=== PATIENT | male | born 1945 | race Caucasian/White ===

== ENCOUNTER 2018-04-05 12:05 | Inpatient (IN) ==
[2018-04-05] MEDS ORDERED: Metoprolol Tartrate 25 MG Tablet PO ONE (13:00)
[2018-04-05] MEDS ORDERED: Chlorhexidine Gluconate 2% 1 Pack (2 Cloths) TOPICAL ONE (13:00)
[2018-04-05] MEDS ORDERED: Vancomycin Inj 1,000 MG in Sodium Chlor 0.9% Inj 250 ML IV.SIG SCH (13:00)
[2018-04-05] MEDS ORDERED: Chlorhexidine 4% Topical 120 APPLIC/120 ML Bottle TOPICAL SCH (13:00)
[2018-04-05] MEDS ORDERED: Sodium Chlor 0.9% Inj 500 ML IV.CONT ONE (13:00)
[2018-04-05] MEDS ORDERED: Ropivacaine 0.5% PF Inj 20 ML Vial ONE (13:53)
[2018-04-05] MEDS ORDERED: Sodium Chlor 0.9% Inj 73.07 ML, Ropivacaine 0.5% PF Inj 24.63 ML, Ketorolac Inj 30 MG, ... P-ARTICULR SCH ×5 (14:00)
[2018-04-05] MEDS ORDERED: ceFAZolin 2 GM Premix Inj 2 GM/50 ML PIGGYBACK IV.SIG SCH (14:00)
[2018-04-05] MEDS ORDERED: Sugammadex Inj 200 MG/2 ML Vial IV.PUSH ONE (14:31)
[2018-04-05] MEDS ORDERED: Lidocaine PF 1% Inj 5 ML Syringe OTHER ONE (14:53)
[2018-04-05] MEDS ORDERED: Ketorolac Inj 30 MG/ML (IVP) Vial IV.PUSH ONE (14:53)
[2018-04-05] MEDS ORDERED: Bisacodyl 10 MG Supp RECTAL PRN (18:02)
[2018-04-05] MEDS ORDERED: Post-op Orders (for Pharmacy) OTHER STA (18:02)
[2018-04-05] MEDS ORDERED: Zolpidem Tartrate 5 MG Tablet PO PRN (18:02)
[2018-04-05] MEDS ORDERED: Morphine Inj 4 MG/ML Vial IV.PUSH PRN (18:02)
[2018-04-05] MEDS ORDERED: fentaNYL Citrate Inj 100 MCG/2 ML Ampul ONE (18:05)
--- NOTE | 2018-04-05 18:25 | XR ---
EXAM DATE: 04/05/2018 6:22 PM EST AGE/SEX: 72 years / Male INDICATIONS: Post op right total knee. CLINICAL DATA: This is the patient's initial encounter. Patient reports that signs and symptoms have been present for 1 day and indicates a pain score of 0/10. MEDICAL/SURGICAL HISTORY: None. None. COMPARISON: No prior exams available for comparison. FINDINGS: Knee arthroplasty in place. Arthroplasty components are in anatomic alignment. No significant acute b anthony fracture. Immediate postsurgical soft tissue changes with surgical drains in place. CONCLUSION: 1. Status post right knee arthroplasty in anatomic alignment without acute fracture. Electronically signed by: Guillermo Najera MD Board Certified Radiologist 04/05/2018 6:23 PM EST
--- NOTE | 2018-04-05 18:50 | MP ---
cc: Randy Dumont MD DATE OF OPERATION: 04/05/2018 PREOPERATIVE DIAGNOSES: Right knee severe tricompartment osteoarthritis, genu varus deformity. POSTOPERATIVE DIAGNOSIS: Right knee severe tricompartment osteoarthritis, genu varus deformity. PROCEDURE PERFORMED: Right total knee arthroplasty - cemented [employer]. SURGEON: Randy Dumont MD HOT STAMP OPERATOR: Edith Spear PA-C. ANESTHESIA: General, adductor canal block, intraarticular block. TOURNIQUET TIME: Tourniquet time was 76 minutes at 250 mmHg. COMPLICATIONS: None. DRAIN Two. SPECIMEN: None. My sales office assistant, Edith Spear PA-C, was present for the entire surgical case. She was medically necessary for the entire case because of the complexity of case and to facilitate the performance of the procedure. The PHARMACY SCHEDULER at the back table was not of skill set for this case to manipulate instruments due to the multiple different soft tissue retractors, trial implants, permanent implants, including bone cement. The patient was brought in the operating room and had a satisfactory general endotracheal anesthesia by the department of anesthesia. The right lower extremity was prepped and draped in the usual sterile manner. The extremity was exsanguinated with elevation and tourniquet inflated at 250 mmHg. Anterior exposure of the knee was made. Paramedian capsulotomy was performed. The patient was found to have severe osteoarthritis with synovitis involving all three compartments of the knee. The remaining portion of the anterior cruciate ligament was removed. The posterior cruciate ligament was preserved. The remaining partial medial and lateral meniscus were removed. Posterior osteophyte formations of distal femur were also removed. The undersurface of the patella and prepatellar fat pad were surgically excised. Using the [employer]Vangu[employer] total knee arthroplasty system, IM guide was used in distal femur. This was 5-degree valgus cut to accept a 67.5 mm femoral component. Extramedullary guide was used for the proximal tibia, and this was to accept a 79 mm tibial component. Trial reduction was made. After appropriate balancing, flexion and extension with 12 mm insert. The patient was found to have excellent stability with both flexion and extension. Undersurface of the patella was removed to accept a 31 mm 3-pronged patellar prosthesis. All trial components were removed. The knee was prepared for cementing. First, the knee was anesthetized using 100 mL of local anesthesia by the provided by the pharmacy department. The knee was then irrigated with copious amounts of sterile saline antibiotic solution. Two packages of methyl methacrylate were used. This was high viscosity bone cement by [employer]. The tibial component was first cemented, this is 79 mm tibial component, followed by the femoral component, which was a 67.5 mm femoral component. Undersurface of the patella was resurfaced using a 31 mm 3-pronged patellar prosthesis. All excess bone cement removed. The bone cement was allowed to harden for 13-1/2 minutes. The trial polyethylene plastic was removed and a 12 x 79 "lipped" polyethylene plastic was assembled onto the tibial tray, and appropriate clipping mechanism was used to attach the polyethylene plastic to the tibial tray. Tourniquet was deflated. All bleeders were coagulated. Wound closed over two 1/8 inch Hemovac drains. The knee was irrigated with 4000 mL of sterile saline and antibiotic solution. The wound itself was allowed to dry. The patella was found to groove well with the patellofemoral compartment with the "no thumbs technique." The wound was closed in multiple layers. The capsule and extensor mechanism was closed with multiple interrupted #2 Ti-Cron suture, subcuticular layers with 0 Vicryl and 2-0 Vicryl, skin approximated with skin izabela. Sterile dressings were applied. The patient tolerated the procedure well and arrived in the recovery room in stable and satisfactory condition. MD MK White/jefferson , 05:57 PM , 06:09 PM
[2018-04-05] MEDS: Gabapentin 300 MG Capsule PO SCH (21:02)
[2018-04-05] MEDS: hydrALAZINE 25 MG Tablet PO SCH ×2 (21:02→23:16)
[2018-04-05] MEDS: Spironolactone 25 MG Tablet PO SCH (21:19)
[2018-04-05] MEDS: oxyCODONE/Acetaminophen 10/325 Tablet PO PRN (21:19)
[2018-04-05] MEDS: Metoprolol Tartrate 25 MG Tablet PO SCH (21:19)
[2018-04-05] MEDS: Senna/Docusate Sodium 8.6/50 MG Tablet PO SCH (21:19)
[2018-04-06] MEDS: oxyCODONE/Acetaminophen 10/325 Tablet PO PRN ×5 (05:57→22:43)
[2018-04-06] MEDS: Levothyroxine 50 MCG Tablet PO SCH (05:57)
[2018-04-06] MEDS: hydrALAZINE 25 MG Tablet PO SCH ×3 (05:57→18:12)
--- NOTE | 2018-04-06 07:19 | P.PNOP ---
Subjective Interval history: POD# 1 R TKR No chest pain;no SOB Explained operative findings;answered multiple questions Physical Exam Vital signs: Vital Signs 04/05/18 13:13 04/05/18 13:41 04/05/18 13:42 Temperature 98.3 F Pulse Rate 79 80 Respiratory Rate 18 Blood Pressure 123/70 Pulse Oximetry 96 92 L 96 04/05/18 17:57 04/05/18 18:00 04/05/18 18:15 Temperature 97.4 F L Pulse Rate 79 79 76 Respiratory Rate 14 14 14 Blood Pressure 147/76 H 138/75 124/69 Pulse Oximetry 98 97 97 04/05/18 18:30 04/05/18 18:56 04/05/18 20:00 Temperature 97.2 F L Pulse Rate 79 73 90 Respiratory Rate 14 14 18 Blood Pressure 128/71 133/76 156/79 H Pulse Oximetry 98 98 99 04/05/18 21:51 04/06/18 00:00 04/06/18 04:00 Temperature 97.6 F 98.7 F Pulse Rate 78 83 Respiratory Rate 17 18 18 Blood Pressure 124/62 115/61 Pulse Oximetry 96 95 04/06/18 06:29 Temperature Pulse Rate Respiratory Rate 18 Blood Pressure Pulse Oximetry Intake & Output 04/05/18 04/05/18 04/06/18 06:59 18:59 06:59 Intake Total 1300 / 1300 200 / 200 Output Total 150 / 150 450 / 450 Balance 1150 / 1150 -250 / -250 Weight 111.5 kg 111.5 kg Intake: IV 1300 / 1300 200 / 200 LR 1000 mL Inj 1,000 ML @ 30 1000 / 1000 mls/hr IV.CONT .Q24H ONE Rx#: [id number] Vancomycin Inj 1,000 MG In NS 250 / 250 Inj 250 ML @ 250 mls/hr IV.SIG OTOLARYNGOLOGY TEACHER STANISLAW Rx#:[id number] Ancef 2 GM Premix Inj 2 gm In 50 / 50 50 ml @ 100 mls/hr IV.SIG OTOLARYNGOLOGY TEACHER STANISLAW Rx#:[id number] Ancef Inj 1,000 MG In NS Inj 200 / 200 100 ML @ 200 mls/hr IV.SIG Q6H [facility]W Rx#:[id number] Output: Urine 150 / 150 Estimated Blood Loss 150 / 150 Wound Drainage 300 / 300 # 1 Right Knee Hemovac 300 / 300 Other: # Voids 1 Date of Last Bowel Movement 04/04/18 Weight On Admission 111.5 kg Narrative: N/V intact Dressings dry Negative homans;no calf tenderness Results - Labs Laboratory Results - last 24 hr 04/05/18 13:08 Blood Type O Negative Antibody Screen Negative MTS Gel Crossmatch See Detail - Imaging Impressions Knee X-Ray 04/05/18 18:00 CONCLUSION: 1. Status post right knee arthroplasty in anatomic alignment without acute fracture. Assessment and Plan - Assessment and Plan Ortho stable Discharge SNF on MondayApr 07 for continued rehab Aspirin 81mg BID x 4 weeks,Knee high Jobst stockings
[2018-04-06 08:12] LABS: Hematocrit 35.7 % (39.0-51.0); Hemoglobin 11.9 gm/dL (13.0-17.0)
[2018-04-06] MEDS: Allopurinol 300 MG Tablet PO SCH (08:47)
[2018-04-06] MEDS: Spironolactone 25 MG Tablet PO SCH ×2 (08:47→22:44)
[2018-04-06] MEDS: Senna/Docusate Sodium 8.6/50 MG Tablet PO SCH ×2 (09:02→22:44)
[2018-04-06] MEDS: amLODIPine 10 MG Tablet PO SCH (09:02)
[2018-04-06] MEDS: Metoprolol Tartrate 25 MG Tablet PO SCH ×2 (09:02→22:44)
[2018-04-06] MEDS: Labetalol 200 MG Tablet PO SCH (09:02)
[2018-04-06] MEDS: Gabapentin 300 MG Capsule PO SCH ×3 (09:02→18:12)
[2018-04-07] MEDS: hydrALAZINE 25 MG Tablet PO SCH ×4 (00:22→18:29)
[2018-04-07 05:27] LABS: Hematocrit 33.5 % (39.0-51.0); Hemoglobin 11.1 gm/dL (13.0-17.0)
[2018-04-07] MEDS: Levothyroxine 50 MCG Tablet PO SCH (05:28)
--- NOTE | 2018-04-07 07:00 | P.PNOP ---
Subjective Interval history: POD 2 s/p Right TKA doing well. states has been working with therapy and walking. progressing well Physical Exam Vital signs: Vital Signs 04/06/18 08:00 04/06/18 12:00 04/06/18 16:00 Temperature 97.6 F 97.2 F L 97.7 F Pulse Rate 82 77 90 Respiratory Rate 20 20 20 Blood Pressure 121/72 104/57 L 134/68 Pulse Oximetry 91 L 95 96 04/06/18 19:35 04/06/18 23:36 04/06/18 23:37 Temperature 97.6 F 98.1 F Pulse Rate 89 87 Respiratory Rate 17 19 18 Blood Pressure 100/64 123/68 Pulse Oximetry 98 95 04/07/18 03:12 Temperature Pulse Rate Respiratory Rate 19 Blood Pressure Pulse Oximetry Intake & Output 04/06/18 04/06/18 04/07/18 06:59 18:59 06:59 Intake Total 200 / 200 2059 Output Total 450 / 450 Balance -250 / -250 2059 Weight 111.5 kg 110.6 kg 110.2 kg Intake: IV 200 / 200 1100 / 1100 LR 1000 mL Inj 1,000 ML @ 80 1000 / 1000 mls/hr IV.CONT .[id number] STANISLAW Rx# :[id number] Ancef Inj 1,000 MG In NS Inj 200 / 200 100 / 100 100 ML @ 200 mls/hr IV.SIG Q6H STANISLAW Rx#:[id number] Oral 960 / 960 Output: Urine 150 / 150 Wound Drainage 300 / 300 # 1 Right Knee Hemovac 300 / 300 Other: # Voids 1 2 4 Date of Last Bowel Movement 04/04/18 04/04/18 04/06/18 # Bowel Movements 0 Narrative: RLE: dressing clean and dry. itnact. NVI. +knee brace Results - Labs CBC & Chem 7: 04/07/18 05:07 Laboratory Results - last 24 hr 04/06/18 04/07/18 06:52 05:07 Hgb 11.9 L 11.1 L Hct 35.7 L 33.5 L Assessment and Plan - Assessment and Plan 1) Right TKA - POD 2 Ortho stable Discharge SNF on MondayApr 07 for continued rehab Aspirin 81mg BID x 4 weeks,Knee high Jobst stockings WBAT dressings per Dr Dumont protocol plan for discharge to SNF when arrangements made f/u wtih Dr Randy Dumont
[2018-04-07] MEDS: Metoprolol Tartrate 25 MG Tablet PO SCH ×2 (09:23→20:52)
[2018-04-07] MEDS: Allopurinol 300 MG Tablet PO SCH (09:23)
[2018-04-07] MEDS: Labetalol 200 MG Tablet PO SCH (09:23)
[2018-04-07] MEDS: amLODIPine 10 MG Tablet PO SCH (09:23)
[2018-04-07] MEDS: Gabapentin 300 MG Capsule PO SCH ×3 (09:23→18:29)
[2018-04-07] MEDS: Spironolactone 25 MG Tablet PO SCH ×2 (09:23→20:49)
[2018-04-07] MEDS: Senna/Docusate Sodium 8.6/50 MG Tablet PO SCH ×2 (09:23→20:49)
[2018-04-07] MEDS: oxyCODONE/Acetaminophen 10/325 Tablet PO PRN ×4 (09:27→20:49)
[2018-04-08] MEDS: hydrALAZINE 25 MG Tablet PO SCH ×4 (00:55→18:00)
[2018-04-08] MEDS: oxyCODONE/Acetaminophen 10/325 Tablet PO PRN ×5 (00:56→22:41)
[2018-04-08] MEDS: Levothyroxine 50 MCG Tablet PO SCH (05:42)
--- NOTE | 2018-04-08 06:42 | P.PNOP ---
Subjective Interval history: POD 3 s/p Right TKA awake and in chair. doing well. states pain controlled. no new events Physical Exam Vital signs: Vital Signs 04/07/18 08:00 04/07/18 12:00 04/07/18 16:00 Temperature 98.3 F 98.6 F 97.8 F Pulse Rate 93 H 80 88 Respiratory Rate 20 20 20 Blood Pressure 127/78 113/58 L 140/81 Pulse Oximetry 94 L 95 99 04/07/18 20:48 04/07/18 23:55 04/08/18 04:00 Temperature 98.1 F 97.4 F L 97.8 F Pulse Rate 89 89 87 Respiratory Rate 17 18 18 Blood Pressure 137/74 129/73 130/74 Pulse Oximetry 96 93 L 98 Intake & Output 04/07/18 04/07/18 04/08/18 06:59 18:59 06:59 Output Total 800 / 800 Balance -800 / -800 Weight 110.2 kg Output: Urine 800 / 800 Other: # Voids 4 Date of Last Bowel Movement 04/06/18 04/06/18 04/07/18 # Bowel Movements 1 Narrative: RLE: dressings clean and dry. intact. NVI Results - Labs CBC & Chem 7: 04/07/18 05:07 Assessment and Plan - Assessment and Plan 1) Right TKA - POD 3 Ortho stable Discharge SNF to SNF today Aspirin 81mg BID x 4 weeks,Knee high Jobst stockings WBAT dressings per Dr Dumont protocol plan for discharge to SNF when arrangements made f/u wtih Dr Randy Dumont
[2018-04-08] MEDS: Allopurinol 300 MG Tablet PO SCH (08:07)
[2018-04-08] MEDS: Gabapentin 300 MG Capsule PO SCH ×3 (08:07→18:30)
[2018-04-08] MEDS: Spironolactone 25 MG Tablet PO SCH ×2 (08:07→20:28)
[2018-04-08] MEDS: amLODIPine 10 MG Tablet PO SCH (08:07)
[2018-04-08] MEDS: Senna/Docusate Sodium 8.6/50 MG Tablet PO SCH ×2 (08:07→20:28)
[2018-04-08] MEDS: Metoprolol Tartrate 25 MG Tablet PO SCH ×2 (08:07→20:28)
[2018-04-08] MEDS: Labetalol 200 MG Tablet PO SCH (08:07)
[2018-04-09] MEDS: hydrALAZINE 25 MG Tablet PO SCH ×3 (00:32→14:00)
[2018-04-09] MEDS: oxyCODONE/Acetaminophen 10/325 Tablet PO PRN ×3 (06:29→17:23)
[2018-04-09] MEDS: Levothyroxine 50 MCG Tablet PO SCH (06:29)
[2018-04-09] MEDS: Gabapentin 300 MG Capsule PO SCH ×2 (08:30→13:30)
[2018-04-09] MEDS: Metoprolol Tartrate 25 MG Tablet PO SCH (08:33)
[2018-04-09] MEDS: Senna/Docusate Sodium 8.6/50 MG Tablet PO SCH (08:33)
[2018-04-09] MEDS: Spironolactone 25 MG Tablet PO SCH (08:34)
[2018-04-09] MEDS: amLODIPine 10 MG Tablet PO SCH (08:34)
[2018-04-09] MEDS: Allopurinol 300 MG Tablet PO SCH (08:34)
[2018-04-09] MEDS: Labetalol 200 MG Tablet PO SCH (08:34)
[2018-04-09 09:29] VITALS: RESP 22
[2018-04-09 13:29] VITALS: BP 128/75; PULSE 87; TEMP 97.2; O2SAT 97
--- NOTE | 2018-04-09 15:57 | P.PNOP ---
Subjective Interval history: Patient sitting comfortably in chair, No complaints except thigh pain, probably from tourniquet. Denies CP or SOB. Physical Exam Vital signs: Vital Signs 04/08/18 16:00 04/08/18 19:50 04/09/18 00:00 Temperature 98.0 F 97.8 F Pulse Rate 96 H 96 H Respiratory Rate 20 18 16 Blood Pressure 165/82 H 146/79 H Pulse Oximetry 96 93 L 04/09/18 00:30 04/09/18 04:30 04/09/18 08:00 Temperature 98.8 F 97.9 F 98.5 F Pulse Rate 83 86 95 H Respiratory Rate 17 18 22 Blood Pressure 126/74 153/82 H 151/77 H Pulse Oximetry 93 L 94 L 95 04/09/18 12:00 Temperature 97.2 F L Pulse Rate 87 Respiratory Rate 22 Blood Pressure 128/75 Pulse Oximetry 97 Intake & Output 04/08/18 04/09/18 04/09/18 18:59 06:59 18:59 Intake Total 520 / 520 960 / 960 Output Total 800 / 800 1000 / 1000 Balance -280 / -280 -40 / -40 Weight 110.2 kg Intake: Oral 520 / 520 960 / 960 Output: Urine 500 / 500 1000 / 1000 Estimated Blood Loss 150 / 150 Wound Drainage 150 / 150 # 1 Right Knee Hemovac 150 / 150 Other: # Voids 4 Date of Last Bowel Movement 04/07/18 04/07/18 04/07/18 # Bowel Movements 0 0 Narrative: RLE: dressings clean and dry. intact. NVI, No calf pain, Stable LE edema Results - Labs CBC & Chem 7: 04/07/18 05:07 Assessment and Plan - Ortho Post Op Day # 4 - Assessment and Plan 1) Right TKA - POD #4 Orthopedically stable as of 04/07/18 Discharge to SNF today or tomorrow Aspirin 81mg BID x 4 weeks,Knee high Jobst stockings WBAT dressings per Dr Dumont protocol Plan for discharge to SNF when arrangements made, await case managment and disposition f/u [facility] Dr Randy Dumont as scheduled
== END 2018-04-09 17:28 | DRG 470 ==
LOC: HSDI 12:05 → N06 18:56
PROVIDERS: ADMIT Orthopaedic Surgery Orthopaedic Surgery of the Spine; ATTEND Orthopaedic Surgery Orthopaedic Surgery of the Spine
CPT/HCPCS: 73560; 85014; 85018; 86850; 86900; 86901; 86923; 94150; 97110; 97116; 97150; 97163; 97530; C1776; J0171; J0690; J0735; J1100; J1580; J1885; J2250; J2405; J2704; J2795; J3010; J3370; J7050; J7120; L1830